=== PATIENT | male | born 1935 | race Caucasian/White ===

== ENCOUNTER → 2016-07-19 | Day surgery (SDC) | payer OTHER ==
[~2016-07-19] MED LIST: BELLADONNA ALKALOIDS/OPIUM 60 MG SUPP RECTAL ONE; GENTAMICIN SULFATE 80 MG/2 ML VIAL ONE; LACTATED RINGER'S 1000 ML INJ 1,000 ML ONE; ONDANSETRON HCL 4 MG/2 ML VIAL IV PUSH ONE; PROPOFOL 200 MG/20 ML AMP IV ONE; ceFAZolin INJ 1,000 MG VIAL ONE
--- NOTE | 2016-07-19 14:03 | TN ---
cc: [facility] DATE OF SURGERY: 07/19/2016 PREOPERATIVE DIAGNOSIS 1. Benign prostatic hyperplasia (ICD - 10 N40.1) 2. Lower urinary tract symptoms. PROCEDURE: 1. (TUVP) Transurethral vaporization of the prostate. (CPT CODE 11849). 2. Transurethral incision of the prostate (TUIP). INDICATIONS FOR PROCEDURE: Mr. Jones is an 80-year-old gentleman who in October of 2015 underwent transurethral resection of prostate and did very well initially and recently has had some lower urinary tract symptoms and as part evaluation was found to have some redundant high-riding bladder neck and some redundant tissue at the apical in the apex of the prostate, who presents now for definitive treatment. 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 Mild to moderate bulbar membranous urethral stricture. The prostatic urethra shows previous TUR defect with some residual obstructing right apical tissue in the bladder neck showed TUR defect or was somewhat high-riding bladder neck. The trigone shows ureteral orifice normal size, shape and position effluxing clear urine bilaterally. The bladder itself shows heavy trabeculation with significant diverticula, no stones, tumors or abnormal mucosa. PROCEDURE Procedure as well as risks and benefits were explained to the patient. Informed consent was obtained the patient was taken major operative theater where he was placed in supine position. The patient was identified as well as the operative site. [place] time-out was performed in standard fashion. At this time general anesthetic prophylactic intravenous antibiotics consisting gentamicin 80 mg's and Ancef 1 gram was administered. After adequate anesthetic, he was placed in low dorsal lithotomy position, mild Trendelenburg and prepped and draped usual sterile fashion. At this time a 22.5 [place] cystoscope with a 30 degree lens was inserted urethra and bladder with the above findings. At this time decision was made to perform transurethral vaporization of prostate using the plasma button in the gyrus system using normal saline. At this time using a 27 [place] the [employer] resectoscope with a plasma button was inserted under direct vision into the bladder and then transurethral vaporization of the prostate was preformed in standard fashion of the residual tissue. Additionally a transurethral incision of the prostate was used using the edge of the plasma button at the level of each ureteral orifice through the bladder neck and the meticulous hemostasis was achieved throughout the case using coagulation mode of the bipolar system and care was taken not to resect distal to the proximal verumontanum throughout the case. After the after a wide open channel the bladder and the sphincter were inspected to make sure there is no incidental damage which there was none. Also confirmed hemostasis. At this time the bladder was filled, the resectoscope removed and pressure was placed on the dome of the bladder, we had an excellent stream. A 20-[place] three-way hematuria catheter was placed to straight drain with the irrigation port capped and 10 cc of sterile water inflated to the balloon, there was clear urine effluxing. The patient was also given a belladonna and opioid suppository. The patient tolerated procedure well, emerged from anesthetic without difficulty and transferred to the recovery stent in stable condition to be discharged home when criteria is met there are no obvious complications. MD HANNA Peña/[place] /1:24 PM /1:35 PM
== END | disposition home or self-care (01) ==
LOC: ESDC 08:34
PROVIDERS: ATTEND Urology
DX: N40.1 Benign prostatic hyperplasia with lower urinary tract symptoms (principal)
CPT/HCPCS: 00914; 52601; J0690; J1580; J2405; J3010; J7120